=== PATIENT | female | born 1995 | race Two or more races ===

== ENCOUNTER → 2021-03-23 | Outpatient (CLI) | payer OTHER | END | disposition home or self-care (01) | LOC: LAB SHORT 17:50 → LAB 17:50 | DX: R30.9 Painful micturition, unspecified (principal) | CPT/HCPCS: 87077; 87086; 87186 ==

== ENCOUNTER → 2023-02-09 | Outpatient (CLI) | payer OTHER | END | disposition home or self-care (01) | LOC: LAB SHORT 16:58 → LAB 16:58 | DX: N89.8 Other specified noninflammatory disorders of vagina (principal) | CPT/HCPCS: 87070; 87077; 87186; 87205 ==

== ENCOUNTER → 2023-03-02 | Outpatient (CLI) | payer OTHER ==
[2023-03-05 09:10] LABS: APTIMA MEDIA TYPE Unisex Swab; C. TRACHOMATIS BY TMA Negative (Negative); N. GONORRHOEAE BY TMA Negative (Negative); SPECIMEN SOURCE Not Provided; T. VAGINALIS BY TMA Negative (Negative)
== END ==
LOC: LAB SHORT 17:20 → LAB 17:20
PROVIDERS: Registered Nurse Community Health
DX: N89.8 Other specified noninflammatory disorders of vagina (principal)
CPT/HCPCS: 87070; 87205; 87491; 87591; 87661

== ENCOUNTER → 2023-03-02 | Outpatient (CLI) | payer OTHER | LOC: LAB SHORT 16:58 → LAB 16:58 | PROVIDERS: Registered Nurse Community Health | DX: Z12.4 Encounter for screening for malignant neoplasm of cervix (principal) | CPT/HCPCS: G0123 ==

== ENCOUNTER 2023-08-09 16:46 | Inpatient (IN) | payer OTHER ==
[~2023-08-09] VITALS: Ht 154.9 cm; Wt 74.0 kg
[2023-08-12 07:17] VITALS: BP 127/87
== END 2023-08-12 14:55 | disposition hospice, home (50) | DRG 872 ==
LOC: ER 16:46 → MEDS 16:47 → ER 22:44 → MEDS 22:44 → ENPENDDIS 08-12 11:05 → MEDS 08-12 14:55
PROVIDERS: ADMIT Internal Medicine
DX: A41.9 Sepsis, unspecified organism (principal); K50.90 Crohn's disease, unspecified, without complications; E86.0 Dehydration; E86.1 Hypovolemia; I95.9 Hypotension, unspecified; N76.2 Acute vulvitis

== ENCOUNTER 2024-02-03 11:24 | Observation (INO) | payer OTHER ==
[~2024-02-03] VITALS: Ht 154.9 cm; Wt 74.4 kg
[~2024-02-03 11:24] MED LIST: CIPR500 PO; METR500 PO; ONDA4ODT MM; VISBIOME 112.51 EACH PO
[2024-02-03] MEDS ORDERED: Ondansetron HCl 2 MG / ML 2ML Vial IV ONE ×2 (11:40→20:55)
[2024-02-03 12:20] LABS: BASOPHILS ABSOLUTE AUTO 0.06 K/mm3 (0.00-0.23); BASOPHILS PERCENT AUTO 0 % (0-2); EOSINOPHILS ABSOLUTE AUTO 0.05 K/mm3 (0.00-0.68); EOSINOPHILS PERCENT AUTO 0 % (0-6); Hematocrit 52.3 % (33.0-51.0); Hemoglobin 17.5 g/dL (11.5-16.0); IMMATURE GRAN ABSOLUTE AUTO 0.13 K/mm3 (0.00-0.10); IMMATURE GRAN PERCENT AUTO 1 % (0-1); LYMPHOCYTES ABSOLUTE AUTO 2.67 K/mm3 (0.84-5.20); LYMPHOCYTES PERCENT AUTO 10 % (21-46); MONOCYTES ABSOLUTE AUTO 0.91 K/mm3 (0.16-1.47); MONOCYTES PERCENT AUTO 4 % (4-13); Mean Corpuscular HGB Conc 33.5 g/dL (31.5-36.5); Mean Corpuscular Volume 84 fL (80-100); Mean Platelet Volume 8.9 fL (9.1-12.4); NEUTROPHILS ABSOLUTE AUTO 21.78 K/mm3 (1.96-9.15); NEUTROPHILS PERCENT AUTO 85 % (41-73); Platelet Count 499 K/mm3 (150-400); RDW Coefficient Variation 13.4 % (11.7-14.2); RDW Standard Deviation 40.9 fL (35.1-46.3); Red Blood Cell Count 6.25 M/mm3 (3.80-5.20)
[2024-02-03 12:31] LABS: Albumin, Blood 3.7 g/dL (3.4-5.0); Albumin/Globulin Ratio 0.9 (0.8-1.8); Bilirubin, Total 0.5 mg/dL (0.1-1.0); Bun/Creatinine Ratio 17.5 (12.0-20.0); Calcium, Blood 9.9 mg/dL (8.5-10.1); Creatinine, Blood 0.91 mg/dL (0.40-1.00); Globulin, Blood 4.2 g/dL (2.2-4.0); Magnesium, Blood 1.9 mg/dL (1.6-2.4); Potassium, Blood 4.9 mmol/L (3.5-5.5); Total Protein, Blood 7.9 g/dL (6.4-8.2)
[2024-02-03] MEDS ORDERED: NS 1,000 ML IV SCH ×3 (18:25→21:10)
[2024-02-03 20:08] LABS: Bun/Creatinine Ratio 21.2 (12.0-20.0); Calcium, Blood 9.1 mg/dL (8.5-10.1); Creatinine, Blood 0.85 mg/dL (0.40-1.00); Potassium, Blood 4.9 mmol/L (3.5-5.5)
[2024-02-03] MEDS ORDERED: HYDROcodone 5-APAP 325 TAB PO PRN (21:40)
[2024-02-03] MEDS ORDERED: Ondansetron HCl 2 MG / ML 2ML Vial IV PRN (21:40)
[2024-02-03] MEDS ORDERED: Lactated Ringer's 1,000 ML IV SCH (22:00)
[2024-02-03 22:50] VITALS: BP 145/89
[2024-02-03] MEDS ORDERED: FLU VACC TS2024-25(6MOS UP)/PF 45 MCG/0.5 ML SYRINGE IM ONE (23:00)
--- NOTE | 2024-02-04 00:08 | NUR ---
ARRIVAL TO UNIT PT ARRIVED TO [place] 02/03/24 AT 2245. GRANDMA AT BEDSIDE. PT A&OX4, AMBULATING INDEPENDENTLY. DENIES DIZZINESS/LIGHTHEAEDED. PT REPORTS INTERMITTENT ACHING OF LOWER ABDOMEN, DIFFUSE ACHING. ENDORSES NAUSEA. PT VOICED UNDERSTANDING OF PLAN OF CARE. DENIES QUESTIONS/CONCERNS AT THIS TIME. ABLE TO VERBALIZE NEEDS, CALL LIGHT IN REACH & PT INSTRUCTED ON USE.
--- NOTE | 2024-02-04 04:23 | NUR ---
SHIFT SUMMARY HOSPITAL NIGHT 1 FOR N/V AND ABD PAIN. PT REPORTS DIFFUSE LOWER ABD PAIN, ACHING. INTERMITTENT, WORSE WITH VOMITING/BM/MOVEMENT. PAIN MANAGED UTILIZING NPIS AND PER EMAR. TELEMETRY ST 119BPM. AMBULATING INDEPENDENTLY TO BATHROOM, DENIES FEELING DIZZY/LIGHTHEADED. VOIDING, PASSING GAS. NO BM WITNESS BY THIS RN. PT VOICED UNDERSTANDING OF PLAN OF CARE. DENIES QUESTIONS/CONCERNS AT THIS TIME. A&OX4, ABLE TO VOICE NEEDS. CALL LIGHT IN REACH & PT INSTRUCTED ON USE.
[2024-02-04 05:07] LABS: BASOPHILS ABSOLUTE AUTO 0.03 K/mm3 (0.00-0.23); BASOPHILS PERCENT AUTO 0 % (0-2); EOSINOPHILS ABSOLUTE AUTO 0.02 K/mm3 (0.00-0.68); EOSINOPHILS PERCENT AUTO 0 % (0-6); Hematocrit 42.8 % (33.0-51.0); Hemoglobin 14.3 g/dL (11.5-16.0); IMMATURE GRAN ABSOLUTE AUTO 0.22 K/mm3 (0.00-0.10); IMMATURE GRAN PERCENT AUTO 1 % (0-1); LYMPHOCYTES PERCENT AUTO 13 % (21-46); MONOCYTES ABSOLUTE AUTO 1.06 K/mm3 (0.16-1.47); MONOCYTES PERCENT AUTO 5 % (4-13); Mean Corpuscular HGB Conc 33.4 g/dL (31.5-36.5); Mean Corpuscular Volume 84 fL (80-100); NEUTROPHILS ABSOLUTE AUTO 16.83 K/mm3 (1.96-9.15); NEUTROPHILS PERCENT AUTO 81 % (41-73); Platelet Count 446 K/mm3 (150-400); RDW Coefficient Variation 13.3 % (11.7-14.2); RDW Standard Deviation 41.1 fL (35.1-46.3); Red Blood Cell Count 5.11 M/mm3 (3.80-5.20); White Blood Cell Count 20.86 K/mm3 (4.00-11.30)
[2024-02-04 05:34] LABS: Albumin, Blood 2.9 g/dL (3.4-5.0); Albumin/Globulin Ratio 0.9 (0.8-1.8); Bilirubin, Total 0.6 mg/dL (0.1-1.0); Bun/Creatinine Ratio 18.6 (12.0-20.0); Creatinine, Blood 0.75 mg/dL (0.40-1.00); Globulin, Blood 3.2 g/dL (2.2-4.0); Potassium, Blood 3.9 mmol/L (3.5-5.5); Total Protein, Blood 6.1 g/dL (6.4-8.2)
[2024-02-04 05:36] VITALS: BP 116/65
[2024-02-04 07:32] VITALS: BP 125/51
[2024-02-04] MEDS ORDERED: Enoxaparin 40 MG/0.4 ML SYR SC SCH (09:00)
[2024-02-04 13:20] LABS: Adenovirus F 40/41 Not Detected (NOT DETECT); Astrovirus Not Detected (NOT DETECT); Campylobacter Sp Not Detected (NOT DETECT); Cryptosporidium Not Detected (NOT DETECT); Cyclospora Cayetanensis Not Detected (NOT DETECT); E. Coli O157 Not Detected (NOT DETECT); Entamoeba Histolytica Not Detected (NOT DETECT); Enteroaggregative E. coli-EAEC Not Detected (NOT DETECT); Enteropathogenic E. coli-EPEC Not Detected (NOT DETECT); Enterotoxigenic E. coli-ETEC Not Detected (NOT DETECT); Giardia Lamblia Not Detected (NOT DETECT); Norovirus GI/GII Not Detected (NOT DETECT); Plesiomonas Shigelloides Not Detected (NOT DETECT); Rotavirus A Not Detected (NOT DETECT); Salmonella Sp Not Detected (NOT DETECT); Sapovirus Not Detected (NOT DETECT); Shiga Toxin-prod E. coli-STEC Not Detected (NOT DETECT); Shigella/Enteroin E. coli-EIEC Not Detected (NOT DETECT); Vibrio Cholerae Not Detected (NOT DETECT); Vibrio Sp Not Detected (NOT DETECT); Yersinia Enterocolitica Not Detected (NOT DETECT)
[2024-02-04 15:24] VITALS: BP 122/84
--- NOTE | 2024-02-04 16:31 | NUR ---
SHIFT SUMMARY MS SHAH HAS NOT HAD ANY NAUSEA THIS SHIFT. TOLERATING PO FLUIDS FOR CLEAR LIQUID DIET WELL. SHE HAS NOT REQUESTED TO INCREASE HER DIET BEYOND CLEAR LIQUID. UP TO BATHROOM WITH STEADY GAIT, NO LIGHTHEADEDNESS WHEN WALKING TO BR. SHE DESCRIBES HER ABDOMINAL PAIN LOW LEVEL ACHE, NOT REQUIRING PAIN MEDICATION. ON TELEMETRY SR/ST 90S TO LOW 100S. NO CALLS FROM BENEFITS CLERK. STOOL SAMPLE NEGATIVE. BED LOW, CALL LIGHT IN REACH.
[2024-02-04 20:11] VITALS: BP 123/80
[2024-02-05 01:28] VITALS: BP 115/79
--- NOTE | 2024-02-05 04:25 | NUR ---
SHIFT SUMMARY PATIENT SLEPT MOST OF THE NIGHT. WAS UP TO BR ONLY 2 OR 3 TIMES. NO SYNCOPAL EPISODES. TELE SR @ 99 NO NAUSEA TONIGHT.
--- NOTE | 2024-02-05 04:28 | NUR ---
SHIFT SUMMARY PATIENT HAD A BETTER NIGHTS SLEEP. HAD A BM AND WAS GIVEN SLEEPER AND PAIN PILL AT HS HAD TO ADJUST HIS O2 HE KEPT PULLING IT OFF
[2024-02-05 04:56] LABS: Hematocrit 33.2 % (33.0-51.0); Hemoglobin 11.1 g/dL (11.5-16.0); Mean Corpuscular HGB 28.3 pg (26.0-34.0); Mean Corpuscular HGB Conc 33.4 g/dL (31.5-36.5); Mean Corpuscular Volume 85 fL (80-100); Mean Platelet Volume 8.7 fL (9.1-12.4); Platelet Count 317 K/mm3 (150-400); RDW Coefficient Variation 13.6 % (11.7-14.2); RDW Standard Deviation 42.1 fL (35.1-46.3); Red Blood Cell Count 3.92 M/mm3 (3.80-5.20); White Blood Cell Count 12.21 K/mm3 (4.00-11.30)
[2024-02-05 05:31] LABS: Albumin, Blood 2.8 g/dL (3.4-5.0); Anion Gap 9 mmol/L (3-11); Blood Urea Nitrogen 6 mg/dL (8-24); Bun/Creatinine Ratio 8.3 (12.0-20.0); CO2, Blood 25 mmol/L (21-32); Calcium, Blood 8.3 mg/dL (8.5-10.1); Chloride, Blood 109 mmol/L (98-108); Creatinine, Blood 0.73 mg/dL (0.40-1.00); Glomerular Filtration Rate 116 (60-); Glucose, Blood 94 mg/dL (70-99); Magnesium, Blood 1.8 mg/dL (1.6-2.4); Phosphorus, Blood 2.4 mg/dL (2.5-4.9); Potassium, Blood 3.7 mmol/L (3.5-5.5); Sodium, Blood 139 mmol/L (136-145)
[2024-02-05 07:43] VITALS: BP 99/59
--- NOTE | 2024-02-05 14:45 | NUR ---
DISCHARGE SUMMARY: PT AOX4 ESCORTED BY WHEELCHAIR TO PT ENTRANCE WHERE MOM WAS WAITING IN THE CAR. PT IND GOT DRESS, AND AMBULATED INTO WHEELCHAIR AND INTO MOTHER'S CAR. PT IN GOOD MOOD AND PLEASANT AFFECT, TELE STICKERS AND IV REMOVED WITHOUT INCIDENT. THANKFUL AND EXCITED TO GO HOME. NO COMPLAINTS OF NAUSEA OR PAIN.
[2024-02-08 12:42] LABS: CALPROTECTIN,FECAL 36 ug/g (<=49)
== END 2024-02-05 14:31 | disposition home or self-care (01) ==
LOC: ER 11:24 → MEDS 11:25
PROVIDERS: Emergency Medicine; Internal Medicine; Physician Assistant; Student in an Organized Health Care Education/Training Program; ADMIT Internal Medicine
DX: R55 Syncope and collapse (principal); K52.9 Noninfective gastroenteritis and colitis, unspecified; R22.31 Localized swelling, mass and lump, right upper limb; D72.829 Elevated white blood cell count, unspecified; E87.20 Acidosis, unspecified; Z79.899 Other long term (current) drug therapy
CPT/HCPCS: 36415; 74177; 80048; 80053; 80069; 83605; 83690; 83735; 83993; 84145; 84703; 85025; 85027; 85651; 86140; 87040; 87507; 90656; 93005; 93010; 93971; 96361; 96374; 96376; 99285-25; A9270; G0378; J1650; J2405; J7030; J7120; Q9967

== ENCOUNTER 2024-02-27 18:01 | Observation (INO) | payer OTHER ==
[~2024-02-27] VITALS: Ht 154.9 cm; Wt 68.3 kg
[2024-02-27] MEDS ORDERED: Ondansetron HCl 2 MG / ML 2ML Vial IV PRN ×2 (19:00→22:45)
[2024-02-27 19:20] LABS: BASOPHILS ABSOLUTE AUTO 0.05 K/mm3 (0.00-0.23); BASOPHILS PERCENT AUTO 0 % (0-2); EOSINOPHILS ABSOLUTE AUTO 0.04 K/mm3 (0.00-0.68); EOSINOPHILS PERCENT AUTO 0 % (0-6); Hemoglobin 18.4 g/dL (11.5-16.0); IMMATURE GRAN ABSOLUTE AUTO 0.15 K/mm3 (0.00-0.10); IMMATURE GRAN PERCENT AUTO 1 % (0-1); LYMPHOCYTES ABSOLUTE AUTO 4.87 K/mm3 (0.84-5.20); LYMPHOCYTES PERCENT AUTO 20 % (21-46); MONOCYTES ABSOLUTE AUTO 1.82 K/mm3 (0.16-1.47); MONOCYTES PERCENT AUTO 7 % (4-13); Mean Corpuscular HGB 27.7 pg (26.0-34.0); Mean Corpuscular HGB Conc 33.5 g/dL (31.5-36.5); Mean Corpuscular Volume 83 fL (80-100); Mean Platelet Volume 8.4 fL (9.1-12.4); NEUTROPHILS ABSOLUTE AUTO 17.91 K/mm3 (1.96-9.15); NEUTROPHILS PERCENT AUTO 72 % (41-73); Platelet Count 631 K/mm3 (150-400); RDW Coefficient Variation 14.4 % (11.7-14.2); RDW Standard Deviation 42.7 fL (35.1-46.3); Red Blood Cell Count 6.64 M/mm3 (3.80-5.20); White Blood Cell Count 24.84 K/mm3 (4.00-11.30)
[2024-02-27 19:45] LABS: Albumin, Blood 3.6 g/dL (3.4-5.0); Albumin/Globulin Ratio 0.9 (0.8-1.8); Bilirubin, Total 0.5 mg/dL (0.1-1.0); Bun/Creatinine Ratio 23.6 (12.0-20.0); Calcium, Blood 9.3 mg/dL (8.5-10.1); Creatinine, Blood 0.98 mg/dL (0.40-1.00); Globulin, Blood 4.2 g/dL (2.2-4.0); Potassium, Blood 4.7 mmol/L (3.5-5.5); Total Protein, Blood 7.8 g/dL (6.4-8.2)
[2024-02-27 20:47] LABS: Source, Urine Clean Catch
[2024-02-27 20:50] LABS: Bilirubin, Urine Neg (Neg); Blood, Urine 4+ (Neg); Glucose Qualitative, Urine Neg (Neg); Ketones, Urine 1+ (Neg); Leukocyte Esterase, Urine Neg (Neg); Nitrite, Urine Neg (Neg); Protein, Urine 2+ (Neg); Specific Gravity, Urine 1.025 (1.003-1.022); Urobilinogen, Urine NORM (Normal)
[2024-02-27 20:57] LABS: Appearance, Urine Clear (Clear); Color, Urine Pale Yellow (P-Yellow)
[2024-02-27 20:58] LABS: Bacteria Many /hpf; Squamous Epithelial Cells Mod /hpf (Few)
[2024-02-27] MEDS ORDERED: Lactated Ringer's 1,000 ML IV SCH (21:15)
[2024-02-27] MEDS ORDERED: Ketorolac Tromethamine 15mg Vial IV ONE (21:25)
[2024-02-27 22:00] LABS: Base Excess Venous -1.6 mmol/L; Bicarbonate Venous 24.4 mmol/L (24.0-30.0); PCO2 Venous 28.9 mmHg (38-42); pH Blood Venous 7.49 (7.34-7.37)
[2024-02-27 22:07] LABS: C-REACTIVE PROTEIN, EXT RANGE 4.71 mg/dL (0.000-0.300)
[2024-02-27 22:11] LABS: Beta-hydroxybutyrate 2.2 mg/dL (0.2-2.8)
[2024-02-27] MEDS ORDERED: FentaNYL Citrate 50 MCG/ML 2 ML Injection IV PRN (22:50)
[2024-02-27] MEDS ORDERED: FLU VACC TS2024-25(6MOS UP)/PF 45 MCG/0.5 ML SYRINGE IM ONE (22:50)
[2024-02-27] MEDS ORDERED: NS 1,000 ML IV ONE (22:50)
[2024-02-27 23:46] LABS: U Amphetamine Screen Not Detected; U Barbituate Screen Not Detected; U Benzodiazapine Screen Not Detected; U Buprenorphine Screen Not Detected; U Cannabinoids Screen Not Detected; U Cocaine Screen Not Detected; U Methadone Screen Not Detected; U Methamphetamine Screen Not Detected; U Opiates Screen Not Detected; U Oxycodone Screen Not Detected; U Phencyclidine Screen Not Detected
[2024-02-28] VITALS (37 sets, daily range): BP systolic 93–137; BP diastolic 50–102
[2024-02-28 00:20] LABS: Influenza A, PCR NEGATIVE (NEGATIVE); Influenza B, PCR NEGATIVE (NEGATIVE); Resp Syncytial Virus, PCR NEGATIVE (NEGATIVE); SARS-Cov-2 (COVID-19) PCR, MMC NEGATIVE (NEGATIVE)
[2024-02-28 05:02] LABS: BASOPHILS ABSOLUTE AUTO 0.04 K/mm3 (0.00-0.23); BASOPHILS PERCENT AUTO 0 % (0-2); EOSINOPHILS ABSOLUTE AUTO 0.15 K/mm3 (0.00-0.68); EOSINOPHILS PERCENT AUTO 1 % (0-6); IMMATURE GRAN ABSOLUTE AUTO 0.08 K/mm3 (0.00-0.10); IMMATURE GRAN PERCENT AUTO 0 % (0-1); LYMPHOCYTES ABSOLUTE AUTO 4.74 K/mm3 (0.84-5.20); LYMPHOCYTES PERCENT AUTO 25 % (21-46); MONOCYTES ABSOLUTE AUTO 1.87 K/mm3 (0.16-1.47); MONOCYTES PERCENT AUTO 10 % (4-13); Mean Corpuscular HGB 27.6 pg (26.0-34.0); Mean Corpuscular HGB Conc 33.3 g/dL (31.5-36.5); Mean Corpuscular Volume 83 fL (80-100); Mean Platelet Volume 8.9 fL (9.1-12.4); NEUTROPHILS PERCENT AUTO 64 % (41-73); Platelet Count 453 K/mm3 (150-400); Red Blood Cell Count 5.08 M/mm3 (3.80-5.20); White Blood Cell Count 19.08 K/mm3 (4.00-11.30)
[2024-02-28 05:33] LABS: Bilirubin, Total 0.6 mg/dL (0.1-1.0); Bun/Creatinine Ratio 20.6 (12.0-20.0); Calcium, Blood 8.1 mg/dL (8.5-10.1); Creatinine, Blood 0.92 mg/dL (0.40-1.00); Globulin, Blood 3.1 g/dL (2.2-4.0); Potassium, Blood 3.7 mmol/L (3.5-5.5); Total Protein, Blood 6.1 g/dL (6.4-8.2)
--- NOTE | 2024-02-28 05:47 | NUR ---
NOC SUMMARY- PT ARRIVED TO ROOM IN NO DISTRESS. PT HAS BEEN RESTING COMFORTABLY. PT HAS BEEN NPO EXCEPT WATER AND ICE CHIPS. PT IS AMBULATORY AND DENIES DIZZINESS. PT HAS BEEN UP TO VOID. PT CURRENTLY RESTING QUIETLY. CALL LIGHT IN REACH.
--- NOTE | 2024-02-28 12:35 | NUR ---
PATIENT FINISHED SUPREP OF 1234. STOOLS ARE CLEAR/YELLOW LIQUID. DR VARGAS'S OFFICE NOTIFIED. ENCOURAGING PATIENT TO DRINK REGULAR WATER AT THIS TIME.
[2024-02-28] MEDS ORDERED: NS 500 ML IV SCH (15:35)
--- NOTE | 2024-02-28 15:59 | NUR ---
IV IN LEFT WRIST NOT FLUSHING. PT C/O PAIN WHEN ATTEMPTING TO FLUSHED. IV DC'D INTACT
[2024-02-28] MEDS ORDERED: Benzocaine Oral Spray 0.5ML UD ONE (16:14)
[2024-02-28] MEDS ORDERED: propofoL 60 ML IV ONE (16:15)
[2024-02-28] MEDS ORDERED: Midazolam HCl 1MG / ML 2ML Vial ONE (16:15)
[2024-02-28] MEDS ORDERED: Lactated Ringer's 1,000 ML IV ONE (16:33)
[2024-02-28] MEDS ORDERED: Lactated Ringer's 1,000 ML IV SCH (16:40)
--- NOTE | 2024-02-28 17:04 | NUR ---
02/28/24 1704 Mady Jeffrey CONFIRMED AND REVIEWED H&P, MEDCICATIONS, ALLERGIES, MEDICAL HISTORY, RESPIRATORY HISTORY, VITAL SIGNS, 3-LEAD EKG, CONSENTS, AND PHYSICIAN ORDERS. PATIENT CONFIRMS NPO STATUS AND AGREES WITH SCHEDULED PROCEDURE. MONITOR INTACT WITH CONTINUOUS PULSE OXIMETRY, CAPNOGRAPHY, 3-LEAD EKG, INTERMITTENT BP. SUPPLEMENTAL O2 TO BE TITRATED THROUGHOUT PROCEDURE TO MAINTAIN O2 SATURATION ABOVE 90%. PATIENT DETERMINED TO BE ASA APPROPRIATE FOR PROPOFOL SEDATION PRIOR TO START OF PROCEDURE BY DR. VARGAS.
--- NOTE | 2024-02-28 18:18 | NUR ---
SHIFT SUMMARY A&OX4, COOPERATIVE WITH CARE. INDEPENDENT IN ROOM. SUPREP COMPLETED AND BIDIRECTIONAL ENDOSCOPY PERFORMED TODAY. PATIENT RETURNED TO ROOM GROGGY BUT ORIENTED. VSS. DENIES ANY CP/PRESSURE, HEADACHE, DIZZINESS, OR SOB. DIET CHANGED TO REGULAR. CURRENTLY RESTING IN BED WITH FAMILY AT BEDSIDE. BED IN THE LOWEST POSITION. CALL LIGHT WITHIN REACH.
[2024-02-28] MEDS ORDERED: BENADRYL25 MG PO (18:21)
[2024-02-28] MEDS ORDERED: HYDHCL25 PO (18:21)
[2024-02-28] MEDS ORDERED: Vitamin B Comple1 EA PO (18:21)
[2024-02-28] MEDS ORDERED: SPRINTEC BIRTH CONTR PO (18:23)
[2024-02-29 03:16] VITALS: BP 110/67
--- NOTE | 2024-02-29 05:01 | NUR ---
A&Ox4, VSS, able to make needs known, denies pain and nausea this shift, tolerating PO intake, resting quietly with eyes closed at this time, will cont to monitor until report given to oncoming nurse.
[2024-02-29] MEDS ORDERED: Sodium, Potassium,Mag Sulfates 354 ML PO ONE (07:00)
[2024-02-29 07:37] VITALS: BP 109/75
--- NOTE | 2024-02-29 12:02 | NUR ---
PT DISCHARGED @ 12:00. DISHCARGE PAPER WORK GONE OVER WITH PT WITH NO QUESTIONS OR CONCERNS. PT WAS INDEPENDENT, A&OX4, PIV REMOVED, AND WHEELED OUT BY FACTORY MACHINE COMPUTER OPERATOR. PT WILL BE GOING HOME.
--- NOTE | 2024-02-29 13:30 | NUR ---
REVIEWED AND AGREE WITH ALL NOTES AND ASSESSMENTS BY LATOYA PRINCE
[2024-03-01 04:54] LABS: ANTI-NUCLEAR AB ANA,IGG ELISA None Detected (None Detected)
== END 2024-02-29 12:01 | disposition home or self-care (01) ==
LOC: ER 18:01 → ERHOLD 18:02 → MEDS 18:02 → ENPENDDIS 02-29 11:29 → MEDS 02-29 12:01
PROVIDERS: Emergency Medicine; Internal Medicine Gastroenterology; ADMIT Internal Medicine
DX: K52.9 Noninfective gastroenteritis and colitis, unspecified (principal); K31.7 Polyp of stomach and duodenum; K31.89 Other diseases of stomach and duodenum; D72.829 Elevated white blood cell count, unspecified; E86.0 Dehydration; E87.20 Acidosis, unspecified; Z79.899 Other long term (current) drug therapy
CPT/HCPCS: 0241U; 36415; 80053; 81001; 81025; 82010; 82570; 82803; 83605; 83690; 83880; 84110; 84145; 85025; 85651; 86038; 86140; 86141; 87086; 88305; 88342; 93005; 93010; 96361; 96374; 96375; 96376; 99285-25; A9270; G0378; J1885; J2250; J2405; J2704; J3010; J7030; J7040; J7120

== ENCOUNTER → 2024-10-10 | Outpatient (CLI) | payer OTHER ==
[~2024-10-10] MED LIST changes: +BENADRYL25 MG PO; +HYDHCL25 PO; +SPRINTEC BIRTH CONTR PO; +Vitamin B Comple1 EA PO
[2024-10-10 15:05] LABS: BASOPHILS ABSOLUTE AUTO 0.04 K/mm3 (0.00-0.23); BASOPHILS PERCENT AUTO 1 % (0-2); EOSINOPHILS ABSOLUTE AUTO 0.13 K/mm3 (0.00-0.68); EOSINOPHILS PERCENT AUTO 2 % (0-6); Hematocrit 38.2 % (33.0-51.0); Hemoglobin 12.3 g/dL (11.5-16.0); IMMATURE GRAN ABSOLUTE AUTO 0.01 K/mm3 (0.00-0.10); IMMATURE GRAN PERCENT AUTO 0 % (0-1); LYMPHOCYTES ABSOLUTE AUTO 2.70 K/mm3 (0.84-5.20); LYMPHOCYTES PERCENT AUTO 37 % (21-46); MONOCYTES ABSOLUTE AUTO 0.58 K/mm3 (0.16-1.47); MONOCYTES PERCENT AUTO 8 % (4-13); Mean Corpuscular HGB Conc 32.2 g/dL (31.5-36.5); Mean Corpuscular Volume 85 fL (80-100); NEUTROPHILS ABSOLUTE AUTO 3.78 K/mm3 (1.96-9.15); NEUTROPHILS PERCENT AUTO 52 % (41-73); NRBC ABSOLUTE 0.00 K/mm3 (0.00-0.02); NRBC Auto 0.0 /100 WBC (0.0-0.2); Platelet Count 523 K/mm3 (150-400); RDW Coefficient Variation 13.5 % (11.7-14.2); RDW Standard Deviation 42.2 fL (35.1-46.3)
[2024-10-10 15:32] LABS: Alanine Aminotransfer (ALT/SGP 26.0 U/L (12-78); Albumin, Blood 3.6 g/dL (3.4-5.0); Albumin/Globulin Ratio 0.9 (0.8-1.8); Anion Gap 7.0 mmol/L (3-11); Aspartate Aminotrans (AST/SGOT 16.0 U/L (12-37); Bilirubin, Total 0.2 mg/dL (0.1-1.0); Blood Urea Nitrogen 8.0 mg/dL (8-24); CO2, Blood 26.0 mmol/L (21-32); Calcium, Blood 8.6 mg/dL (8.5-10.1); Chloride, Blood 105.0 mmol/L (98-108); Creatinine, Blood 0.74 mg/dL (0.40-1.00); Globulin, Blood 4.0 g/dL (2.2-4.0); Glucose, Blood 122.0 mg/dL (70-99); Potassium, Blood 3.9 mmol/L (3.5-5.5); Sodium, Blood 134.0 mmol/L (136-145); Total Protein, Blood 7.6 g/dL (6.4-8.2)
== END | disposition home or self-care (01) ==
LOC: LAB SHORT 12:52 → LAB 12:52
PROVIDERS: Student in an Organized Health Care Education/Training Program
DX: E66.09 Other obesity due to excess calories (principal)
CPT/HCPCS: 80053; 85025